=== PATIENT | female | born 1935 | race Caucasian/White ===

== ENCOUNTER 2017-10-26 13:12 | Outpatient (CLI) | payer MEDICARE, BC | END 2017-10-26 13:13 | disposition home or self-care (01) | LOC: BICMAMMO 13:12 | PROVIDERS: ATTEND Family Medicine | DX: Z12.31 Encounter for screening mammogram for malignant neoplasm of breast (principal); Z85.3 Personal history of malignant neoplasm of breast; Z80.3 Family history of malignant neoplasm of breast | CPT/HCPCS: 77063; 77067 ==

== ENCOUNTER 2018-10-29 15:31 | Outpatient (CLI) | payer MEDICARE, BC ==
--- NOTE | 2018-10-29 16:01 | MMO ---
Bilateral MAMMO Bilat Screen [facility]. CLINICAL HISTORY: Patient is 83 years old and is seen for screening. The patient has the following family history of breast cancer: mother, at age 69. 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 VIEWS: The views performed were: bilateral craniocaudal with tomosynthesis and bilateral mediolateral oblique with tomosynthesis. FILMS COMPARED: The present examination has been compared to a prior imaging study performed at [facility] on 10/26/2017. MAMMOGRAM FINDINGS: The breasts are heterogeneously dense, which could obscure a lesion on mammography. Right breast: Stable post surgical change. There are benign appearing calcifications in the right breast. Right biopsy clip. Left breast: There are no suspicious masses, calcifications or areas of architectural distortion. There are benign appearing calcifications in the left breast. There are no suspicious masses, suspicious calcifications, or new areas of architectural distortion. IMPRESSION: THERE IS NO MAMMOGRAPHIC EVIDENCE OF MALIGNANCY. A ROUTINE FOLLOW-UP MAMMOGRAM IN 1 YEAR IS RECOMMENDED. THE RESULTS OF THIS EXAM WERE SENT TO THE PATIENT. ACR BI-RADS Category 2 - Benign finding MAMMOGRAPHY NOTE: 1. A negative mammogram report should not delay a biopsy if a dominant of clinically suspicious mass is present. 2. Approximately 10% to 15% of breast cancers are not detected by mammography. 3. Adenosis and dense breasts may obscure an underlying neoplasm. Reported by: BRITNEY BYNUM MD Electonically Signed: [id number]
== END 2018-10-29 15:32 | disposition home or self-care (01) ==
LOC: BICMAMMO 15:31
PROVIDERS: ATTEND Internal Medicine Medical Oncology
DX: Z12.31 Encounter for screening mammogram for malignant neoplasm of breast (principal); Z80.3 Family history of malignant neoplasm of breast; Z98.890 Other specified postprocedural states
CPT/HCPCS: 77063; 77067

== ENCOUNTER 2019-01-18 12:31 | Outpatient (CLI) | payer MEDICARE, BC ==
--- NOTE | 2019-01-18 15:09 | RAD ---
BARIUM SWALLOW ESOPHAGRAM: HISTORY: GERD. Globus sensation. EXPOSURE: 1.4 minutes 8.381 Gy/cm2 FINDINGS: Crematory Attendant chest radiograph: Upper normal cardiac silhouette. Pulmonary vessels and hilum are normal. Cost ophrenic angles are clear. Chronic changes in the lung parenchyma without consolidation or mass. Surgical clips project over the right lung base. No pneumothorax or acute osseous abnormalities. Mild rightward curvature the distal thoracic spine. The cervical cord and the thoracic cord have an overall normal course and caliber. No evidence of pen etration or aspiration. There is mild tertiary change involving the thoracic esophagus which may represent a component of esophageal dysmotility. No reflux during intermittent fluoroscopy. A standard 13 mm barium tablet passes without difficulty. IMPRESSION: Occasional tertiary contractions. Correlate for esophageal dysmotility. No penetration or aspiration. Transcribed Date/Time: 01/18/2019 3:19 PM
== END 2019-01-18 12:32 | disposition home or self-care (01) ==
LOC: RAD 12:31
PROVIDERS: ATTEND Physician Assistant Medical
DX: K21.9 Gastro-esophageal reflux disease without esophagitis (principal); F45.8 Other somatoform disorders
CPT/HCPCS: 74220

== ENCOUNTER 2019-11-01 11:44 | Outpatient (CLI) | payer MEDICARE, BC ==
--- NOTE | 2019-11-01 12:32 | MMO ---
Bilateral MAMMO Bilat Screen [facility]. CLINICAL HISTORY: Patient is 84 years old and is seen for screening. The patient has the following family history of breast cancer: mother, at age 69. The patient has a history of malignant (generic) in the right breast 1995. 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 VIEWS: The views performed were: bilateral craniocaudal with tomosynthesis and bilateral mediolateral oblique with tomosynthesis. FILMS COMPARED: The present examination has been compared to prior imaging studies performed at [facility] on 10/26/2017 and 10/29/2018, and at [facility] on 07/19/2015 and 08/12/2016. This study has been interpreted with the assistance of computer-aided detection. MAMMOGRAM FINDINGS: The breasts are heterogeneously dense, which could obscure a lesion on mammography. Finding 1: There are stable benign appearing calcifications seen in both breasts. Finding 2: There are stable benign appearing densities seen in both breasts. Finding 3: There is a stable area of architectural distortion with associated post-surgical scar seen in the left breast. There are no suspicious masses, suspicious calcifications, or new areas of architectural distortion. IMPRESSION: THERE IS NO MAMMOGRAPHIC EVIDENCE OF MALIGNANCY. A ROUTINE FOLLOW-UP MAMMOGRAM IN 1 YEAR IS RECOMMENDED. THE RESULTS OF THIS EXAM WERE SENT TO THE PATIENT. ACR BI-RADS Category 2 - Benign finding MAMMOGRAPHY NOTE: 1. A negative mammogram report should not delay a biopsy if a dominant of clinically suspicious mass is present. 2. Approximately 10% to 15% of breast cancers are not detected by mammography. 3. Adenosis and dense breasts may obscure an underlying neoplasm. Reported by: NIA STEINBERG MD Electonically Signed: [id number]
== END 2019-11-01 11:45 | disposition home or self-care (01) ==
LOC: BICMAMMO 11:44
PROVIDERS: ATTEND Internal Medicine Medical Oncology
DX: Z12.31 Encounter for screening mammogram for malignant neoplasm of breast (principal); Z85.3 Personal history of malignant neoplasm of breast; Z80.3 Family history of malignant neoplasm of breast; Z98.890 Other specified postprocedural states
CPT/HCPCS: 77063; 77067

== ENCOUNTER 2021-11-05 11:52 | Outpatient (CLI) | payer MEDICARE, BC | END 2021-11-05 11:53 | disposition home or self-care (01) | LOC: BICMAMMO 11:52 | PROVIDERS: ATTEND Family Medicine | DX: Z12.31 Encounter for screening mammogram for malignant neoplasm of breast (principal); Z80.3 Family history of malignant neoplasm of breast; Z85.3 Personal history of malignant neoplasm of breast; Z98.890 Other specified postprocedural states | CPT/HCPCS: 77063; 77067 ==

== ENCOUNTER 2023-07-07 12:07 | Day surgery (SDC) | payer MEDICARE, OTHER ==
[2023-07-06 11:50] VITALS: BMI 25.9
[2023-07-07] MEDS ORDERED: PROPOFOL 20 ML ONE (14:02)
[2023-07-07] MEDS ORDERED: Lidocaine 2% PF 5 ML VIAL ONE (14:02)
[2023-07-07] MEDS ORDERED: Ondansetron PF 4 MG/2 ML Vial ONE (14:22)
[2023-07-07] MEDS ORDERED: Acetaminophen 500 MG TAB ONE ×2 (15:08→15:14)
== END 2023-07-07 16:12 | disposition home or self-care (01) ==
LOC: SDC 12:07
PROVIDERS: ATTEND Internal Medicine Gastroenterology
PROC: XW0H7X8 Introduction of Broad Consortium Microbiota-based Live Biotherapeutic Suspension into Lower GI, Via Natural or Artificial Opening, New Technology Group 8 (ICD-10-PCS; principal; 2023-07-07)
DX: A04.71 Enterocolitis due to Clostridium difficile, recurrent (principal); K57.30 Diverticulosis of large intestine without perforation or abscess without bleeding; K64.8 Other hemorrhoids; K21.9 Gastro-esophageal reflux disease without esophagitis; Z90.89 Acquired absence of other organs; Z90.710 Acquired absence of both cervix and uterus; Z90.49 Acquired absence of other specified parts of digestive tract; Z79.82 Long term (current) use of aspirin; Z79.899 Other long term (current) drug therapy; Z88.1 Allergy status to other antibiotic agents; Z88.6 Allergy status to analgesic agent; Z91.041 Radiographic dye allergy status; Z88.8 Allergy status to other drugs, medicaments and biological substances; Z86.010 Personal history of colon polyps
CPT/HCPCS: J2001; J2405; J2704